=== PATIENT | female | born 1975 | race Caucasian/White ===

== ENCOUNTER 2020-11-20 14:20 | Emergency (ER) | payer OTHER ==
[2020-11-20 14:35] VITALS: RESP 18; TEMP 97.9
--- NOTE | 2020-11-20 15:10 | XR ---
EXAMINATION TYPE: XR finger LT DATE OF EXAM: 11/20/2020 CLINICAL HISTORY: Pain after injury. Findings worse over fifth finger. TECHNIQUE: Frontal, lateral and oblique images of the left fifth finger are obtained. COMPARISON: None. FINDINGS: There is no acute fracture or dislocation left fifth finger. Moderate narrowing of PIP niranjan nt. Mild to moderate focal soft tissue swelling centered left fifth PIP joint. IMPRESSION: As above.
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
[2020-11-20 16:31] VITALS: BP 142/86; PULSE 70
== END 2020-11-20 16:30 | disposition home or self-care (01) ==
LOC: EC 14:20
DX: M79.645 Pain in left finger(s) (principal); Y93.89 Activity, other specified; W22.8XXA Striking against or struck by other objects, initial encounter
CPT/HCPCS: 99283